=== PATIENT | female | born 1970 | race Caucasian/White ===

== ENCOUNTER 2024-12-29 18:07 | Emergency (ER) | payer OTHER ==
[~2024-12-29] VITALS: Ht 170.2 cm; Wt 94.0 kg
[2024-12-29 18:13] VITALS: BP 152/85; PULSE 72; RESP 12; TEMP 98; O2SAT 98
== END 2024-12-29 19:12 | disposition left against medical advice (07) ==
LOC: ER 18:07 → EDBD 18:07 → ER 19:12
DX: R51.9 Headache, unspecified (principal); Z79.899 Other long term (current) drug therapy

== ENCOUNTER 2025-01-29 15:20 | Emergency (ER) | payer OTHER ==
[~2025-01-29] VITALS: Ht 172.7 cm; Wt 90.9 kg
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
[2025-01-29 15:57] LABS: Hematocrit 35.2 % (36.0-46.0); Hemoglobin 11.9 g/dL (12.2-16.2); Mean Corpuscular Hemoglobin 31.9 pg (28.0-32.0); Mean Corpuscular Volume 94.3 fL (80.0-100.0); Nucleated Red Blood Cells % 0.1 %
[2025-01-29 16:14] LABS: Albumin 3.9 g/dL (3.2-4.8); Alkaline Phosphatase 78 U/L (46-116); Anion Gap 6 (5-15); Carbon Dioxide 27 mmol/L (20-31); Chloride 106 mmol/L (98-107); Glucose 76 mg/dL (74-106); Potassium 3.8 mmol/L (3.5-5.1); Sodium 139 mmol/L (136-145); Total Protein 6.4 g/dL (5.7-8.2)
[2025-01-29 16:15] LABS: Bilirubin, Total 0.4 mg/dL (0.2-1.0)
[2025-01-29 16:17] LABS: Alanine Aminotransferase 42 U/L (7-40); BUN/Creatinine Ratio 6.8 (10.0-20.0); Blood Urea Nitrogen < 5 mg/dL (9-23); Calcium 8.1 mg/dL (8.7-10.4)
--- NOTE | 2025-01-29 16:58 | ECG ---
[facility] Test Date: 2025-01-29 Test Time: 16:51:42 Pat Name: DANIEL RAGSDALE Department: ED Room: Gender: F Photography Intern: LORRAINE : 1970 Requested By: JEAN CARLOS GARCÍA Order Number: [id number] Reading MD: Michael Mathew Measurements Intervals [place] Rate: 51 P: 63 TN: 182 QRS: 14 QRSD: 102 T: 35 QT: 466 QTc: 430 Interpretive Statements Sinus rhythm Low voltage, precordial leads Probable anteroseptal infarct, old Electronically Signed On 01-29-2025 20:12:48 PST by Michael Mathew Please click the below link to view image of tracing.
--- NOTE | 2025-01-29 18:21 | DVH ---
COMPUTERIZED TOMOGRAPHY OF THE HEAD WITHOUT CONTRAST REASON FOR STUDY: FALL. Head injury. COMPARISON: None TECHNIQUE: Helical tomographic scans were obtained through the brain. 2-D coronal and sagittal reformatted images are provided. Radiation optimization: All CT scans at this facility use at least one of these dose optimization techniques: Automated exposure control mA and/or kV adjustment per patient size (includes targeted exams where dose is matched to clinical indication) or iterative reconstruction. RADIATION DOSE: CTDI: 54.21 mGy DLP: 959.95 mGy-cm FINDINGS: No suspicious intracranial hyperdensity to suggest acute blood. There is no mass effect nor midline shift. There is no hydrocephalus. The suprasellar cistern is intact. The calvarium is intact. The visualized mastoid air cells and paranasal sinuses are clear. IMPRESSION: No acute intracranial abnormality.
--- NOTE | 2025-01-29 18:24 | DVH ---
EXAM: CT CERVICAL WITHOUT CONTRAST INDICATION: FALL EXAM DATE: 01/29/2025 05:43 PM COMPARISON: None TECHNIQUE: CT exam of the cervical spine was performed without intravenous contrast. CT Dose: CTDI volume is 22 mGy. Dose-length product is 538 mGy*cm FINDINGS: No evidence of acute fracture. Alignment is within normal limits. No prevertebral edema. Paraspinal soft tissues are within normal limits. Visualized lung apices are clear. Calcified thyroid nodules. IMPRESSION: NO EVIDENCE OF ACUTE FRACTURE OR TRAUMATIC MALALIGNMENT OF THE CERVICAL SPINE.
--- NOTE | 2025-01-29 18:48 | DVH ---
EXAM: XY L WRIST 3+ VIEW XRAY REASON FOR EXAM: FALL TECHNIQUE: PA, lateral, and oblique views of the left wrist are submitted for review. COMPARISON: None FINDINGS: There is old healed fracture of the distal radial metaphysis. There is chronic fracture of the ulnar styloid. There is no widening of the scapholunate interval. No acute fracture or dislocation is identified there is chronic deformity of the 2nd metacarpal head. IMPRESSION: No acute fracture or dislocation. Old fractures of the distal radial metaphysis and ulnar styloid.
[2025-01-29] MEDS: THIAMINE HCL 100 MG TAB PO ONE (19:30)
[2025-01-29] MEDS: SODIUM CHLORIDE 0.9% 1,000 ML IV ONE (19:30)
[2025-01-29] MEDS: MAGNESIUM SULFATE 1GM/100ML 100 ML IV ONE (19:30)
[2025-01-29 19:32] LABS: Urine Protein, UAD Negative (Negative)
[2025-01-29 19:41] VITALS: BP 125/50; PULSE 63; RESP 14; TEMP 97.8; O2SAT 96
== END 2025-01-30 06:05 | disposition left against medical advice (07) ==
LOC: ER 15:20 → EDUNIT# 15:20 → EDBD 15:20 → ER 01-30 06:05
DX: S00.83XA Contusion of other part of head, initial encounter (principal); F10.129 Alcohol abuse with intoxication, unspecified; F11.20 Opioid dependence, uncomplicated; Z88.1 Allergy status to other antibiotic agents; Z79.899 Other long term (current) drug therapy; Y90.9 Presence of alcohol in blood, level not specified; W19.XXXA Unspecified fall, initial encounter; Y93.89 Activity, other specified; Y92.89 Other specified places as the place of occurrence of the external cause; Y99.8 Other external cause status
CPT/HCPCS: 36415; 70450; 72125; 73110; 80053; 80320; 81001; 83605; 84484; 85025; 93005; 96365; 99285; J3475